=== PATIENT | male | born 1970 | race Caucasian/White ===

== ENCOUNTER 2021-02-28 09:47 | Outpatient (CLI) | payer BC, SELFPAY ==
[2021-02-28 11:28] LABS: SARS-CoV-2 Ag Positive (Negative)
[2021-02-28 19:35] LABS: Influenza Control Valid (Valid)
== END 2021-02-28 09:48 | disposition home or self-care (01) ==
LOC: CHSLAB 09:50
PROVIDERS: PCP Internal Medicine; Visit Provider Internal Medicine
DX: U07.1 COVID-19 (principal); J06.9 Acute upper respiratory infection, unspecified
CPT/HCPCS: 87081; 87426; 87804; 87880; C9803

== ENCOUNTER 2021-03-04 08:10 | Emergency (ER) | payer BC, SELFPAY ==
--- NOTE | ~2021-03-04 | XR_ITS ---
EXAMINATION: XR chest 1V portable DATE: 03/04/2021 08:36 INDICATION: Cough. COVID-19 pneumonia. TECHNIQUE: A single frontal view of the chest was obtained. COMPARISON: Chest 2 views 01/05/2019 FINDINGS: There are patchy airspace opacities in all lung zones with relative sparing of the lung api tyron. No pleural effusion or pneumothorax. The heart size is normal. Surgical clips overlie the neck. IMPRESSION: 1. Diffuse lung disease, consistent with pneumonia. Reviewed, dictated and finalized at location B. TEAM LEAD
--- NOTE | 2021-03-04 08:19 | ED.SOB ---
HPI - SOB/Dyspnea General Chief Complaint: Shortness of Breath/Dyspnea Stated Complaint: covid positive/severe cough/low blood ox Source: patient and RN notes reviewed Mode of arrival: ambulatory Limitations: no limitations History of Present Illness HPI Narrative: Patient states he he tested positive for COVID 4 days ago. He supposed to be getting infusion with monoclonal antibodies at [facility] but he has not heard from them yet. He says he has been coughing more and can not seem to get the secretions out through his tracheostomy site. He used his oxygen saturation monitor this morning and was 88-90%. He became concerned and came in for further evaluation. Says he is having lot of pain with all the coughing he is having. Pain is in between his ribs his muscles feel sore. MD elicited complaint: cough Pertinent past history: COPD Onset (ago): hour(s) (2) Context: recent illness Timing: intermittent Severity: moderate Exacerbating factors: coughing Relieving factors: nothing Associated symptoms: denies other symptoms Treatment prior to arrival: none Related Data Allergies Allergy/AdvReac Type Severity Reaction Status Date / Time No Known Allergies Allergy Unverified 09/21/18 07:52 Review of Systems Review of Systems: All systems reviewed & are unremarkable except as noted in HPI and below Constitutional: Constitutional: Denies chills and Denies fever(s) PMFSH Past Medical History Medical History (Updated 03/04/21 @ 12:22 by Viviana Arenas [facility]) Esophageal cancer Hypertension Surgical History Surgical History (Updated 03/04/21 @ 08:43 by Edvin Matias MD) H/O laryngectomy Social History Social History (Updated 03/04/21 @ 08:43 by Edvin Matias MD) Smoking status: Never smoker Exam Const: General: healthy appearing, no acute distress and alert Nutritional Appearance: well nourished and obese morbidly obese Orientation/consciousness: patient oriented x3 HENMT: Head: normal to inspection Face and sinus: normal facial exam Eyes: Conjunctivae: conjunctivae normal Pupils: Equal, round and reactive pupils present EOM: EOMs intact bilaterally Neck: Neck: normal visual inspection Resp: Effort & Inspection: normal respiratory effort Auscultation: rhonchi throughout and wheezes expiratory wheezes and anterior Cardio: Rate: regular rate Rhythm: regular rhythm GI: GI Palp: Yes Soft to palpation and No Tenderness to palpation present (GI) Auscultation: normal bowel sounds Back/Spine/Pelvis: Cervical Spine: cervical ROM normal Thoracic/Lumbar Spine: thoraco-lumbar ROM normal Skin: General skin exam: normal color Neuro: General: patient oriented x3, moves all extremities, no meningeal signs and no focal motor deficits Speech: normal speech Gait exam (Neuro): Normal gait present Extrem: General: normal to inspection and no clubbing, cyanosis or edema Psych: Mental Status: mental status grossly normal Affect: normal affect Attitude: cooperative Thought content: Yes Normal thought content present Course Vital Signs Vital signs: Vital Signs Temperature 37.2 C 03/04/21 08:29 Pulse Rate 77 03/04/21 08:29 Respiratory Rate 18 03/04/21 08:29 Blood Pressure 169/104 H 03/04/21 08:29 Pulse Oximetry 94 03/04/21 08:29 Temperature 37.2 C 03/04/21 08:29 Pulse Rate 72 03/04/21 09:40 Respiratory Rate 20 03/04/21 10:10 Blood Pressure 173/102 H 03/04/21 09:40 Pulse Oximetry 90 03/04/21 10:10 MDM - SOB/Dyspnea Lab Data Result diagrams: 03/04/21 08:20 03/04/21 08:20 Labs: Lab Results 03/04/21 03/04/21 03/04/21 Range/Units 08:20 08:20 08:20 WBC 3.8 L (4.8-10.8) K/mm3 RBC 4.62 L (4.70-6.10) M/mm3 Hgb 13.4 L (14.0-18.0) g/dL Hct 39.3 L (40.0-54.0) % MCV 85.1 (78.0-102.0) fL MCH 29.0 (27.0-31.0) pg MCHC 34.1 (32.0-36.0) g/dL RDW 13.5 (11.6-14.4) % Plt Count 194 (150-420)
[2021-03-04 08:29] VITALS: BP 169/104; PULSE 77; RESP 18; TEMP 37.2; O2SAT 94
[2021-03-04 08:58] LABS: Hematocrit 39.3 % (40.0-54.0); Hemoglobin 13.4 g/dL (14.0-18.0); Mean Corpuscular HGB Conc 34.1 g/dL (32.0-36.0); Mean Corpuscular Volume 85.1 fL (78.0-102.0); Mean Platelet Volume 9.9 fl (8.7-11.0); Platelet Count Result 194 K/mm3 (150-420); Red Blood Count 4.62 M/mm3 (4.70-6.10); Red Cell Distribution Width 13.5 % (11.6-14.4); White Blood Count 3.8 K/mm3 (4.8-10.8)
[2021-03-04 09:14] LABS: D Dimer 0.45 mg/L (0.19-0.50)
[2021-03-04 09:27] LABS: Band Neutrophils Percent 2 % (0-6); Lymphocytes Absolute Manual 0.19 K/mm3 (1.1-4.5); Lymphocytes Percent Manual 5 % (18-44); Monocytes Absolute Manual 0.15 K/mm3 (0.1-0.90); Monocytes Percent Manual 4 % (3-9); Neutrophils Absolute Manual 3.45 K/mm3 (1.3-6.7); Neutrophils Percent Manual 89 % (46-73); Total Cells Counted 100
[2021-03-04 09:28] LABS: Platelet Estimate Adequate (Adequate)
--- NOTE | 2021-03-04 09:28 | PC.NURSE ---
faxed orders for outpatient antibody infusion to [facility]. jos[facility] miguel to call to schedule appt for today
[2021-03-04 09:30] LABS: Alanine Aminotransferase 63 U/L (16-63); Albumin Level 3.7 g/dL (3.4-5.0); Alkaline Phosphatase 60 U/L (46-116); Anion Gap 10 mmol/L (8-16); Aspartate Amino Transferase 74 U/L (15-37); Bilirubin,Total 0.4 mg/dL (0.00-1.00); Blood Urea Nitrogen 11 mg/dL (7-18); CRP 4.2 mg/dL (0.0-0.9); Calcium 8.7 mg/dL (8.5-10.1); Carbon Dioxide 27 mmol/L (21-32); Chloride 94 mmol/L (98-108); Estimated CRCL calculation 118 ml/min; Estimated Glomerular Filt Rate > 60; Ferritin 952 ng/mL (26-388); Glucose 113 mg/dL (70-99); Osmolality Calculated 272 mOsm/kg (285-295); Potassium 3.4 mmol/L (3.5-5.1); Sodium 131 mmol/L (136-145); Total Protein 7.5 g/dL (6.4-8.2)
[2021-03-04 09:40] VITALS: BP 173/102; PULSE 72; O2SAT 87
[2021-03-04 09:51] LABS: Lactic Acid Reflex 1.1 mmol/L (0.4-2.0)
[2021-03-04 10:10] VITALS: RESP 20; O2SAT 90
[2021-03-04] MEDS: ALBUTEROL SULFATE (*SP) INHALER 4 PUFF INHALATION (10:14)
== END 2021-03-04 10:18 | disposition home or self-care (01) ==
PROVIDERS: Emergency Provider Emergency Medicine; PCP Internal Medicine
DX: U07.1 COVID-19 (principal); J12.82 Pneumonia due to coronavirus disease 2019
CPT/HCPCS: 36415; 71045; 80053; 82728; 83605; 83735; 85025; 85380; 86140; 94640; 96372; 99283; A9270; J1100

== ENCOUNTER 2021-03-04 11:49 | Outpatient (RCR) | payer BC, SELFPAY ==
[2021-03-04 13:57] VITALS: BP 167/93; PULSE 88; RESP 24; TEMP 36.1; O2SAT 92
[2021-03-04] MEDS: ACETAMINOPHEN 325 MG TABLET 650 MG PO (14:02)
[2021-03-04] MEDS: FAMOTIDINE 20 MG TABLET PO (14:02)
[2021-03-04] MEDS: diphenhydrAMINE HCl CAP 25 MG CAPSULE PO (14:02)
[2021-03-04 15:28] VITALS: BP 137/83; PULSE 85; O2SAT 92
== END 2021-03-04 17:00 ==
LOC: AMCINF 11:49
PROVIDERS: Visit Provider Internal Medicine Hematology & Oncology
DX: U07.1 COVID-19 (principal); C32.9 Malignant neoplasm of larynx, unspecified
CPT/HCPCS: A9270; M0243; Q0244

== ENCOUNTER 2021-05-15 14:21 | Emergency (ER) | payer BC, SELFPAY ==
--- NOTE | ~2021-05-15 | XR_ITS ---
EXAMINATION: XR hand LT min 3V INDICATION: Left hand pain TECHNIQUE: Three views of the left hand are obtained. COMPARISON: None available FINDINGS: There is a soft tissue laceration adjacent to the medial aspect of the first proximal phala nx. No underlying osseous abnormality is identified. The joint spaces are normal. IMPRESSION: 1. Soft tissue laceration of the first finger without underlying osseous abnormality. Reviewed, dictated and finalized at location B. IMPRESSION: 1. Soft tissue laceration of the first finger without underlying osseous abnorm ality.
--- NOTE | 2021-05-15 14:39 | ED.WOUNDLAC ---
HPI - Wound/Laceration General Chief Complaint: Wound/Laceration Stated Complaint: cut left hand Time Seen by Provider: 05/15/21 14:40 Source: patient Mode of arrival: ambulatory History of Present Illness HPI narrative: 50-year-old male with a history of hypertension, esophageal/ pharyngeal cancer status post laryngectomy, tracheostomy presents to the ER with -- 3 cm deep laceration on the plantar aspect of the proximal phalanx of the left thumb. This happened 45 minutes ago. -- Unable to flex his distal phalanx. Decreased sensation on the distal phalanx. Normal capillary refill distally. Onset (ago): minute(s) ( 45 minutes) Extremity Location: Left: hand Place: home Patient tetanus UTD: Yes Context: accidental Associated symptoms: pain, loss of feeling/numbness and unable to move injured part Related Data Allergies Allergy/AdvReac Type Severity Reaction Status Date / Time No Known Allergies Allergy Verified 03/04/21 13:57 Review of Systems Review of Systems: All systems reviewed & are unremarkable except as noted in HPI and below Constitutional: Constitutional: Reports as per HPI and Reports no additional constitutional complaints Eyes: Eyes: Reports as per HPI and Reports no additional eye complaints ENT: Comments: status post tracheostomy has a speaking tracheostomy Cardiovascular: Cardiovascular: Reports as per HPI and Reports no additional cardiovascular complaints Respiratory: Respiratory: Reports as per HPI and Reports no additional respiratory complaints Gastrointestinal: Gastrointestinal: Reports as per HPI and Reports no additional gastrointestinal complaints Genitourinary: Genitourinary: Reports no additional male genitourinary complaints and Reports as per HPI Musculoskeletal: Musculoskeletal: Reports no additional musculoskeletal complaints and Reports as per HPI Integumentary/Breasts: Skin/Breast: Reports system reviewed and no additional complaints, except as docu and Reports as per HPI Comments: 3 cm laceration of the left thumb Neurologic: Reports system reviewed and no additional complaints, except as documented Psychiatric: Psychiatric: Reports no additional psychiatric complaints Endocrine: Endocrine: Reports no additional endocrine complaints Hematologic/Lymphatic: Hematologic/Lymphatic: Reports no additional hematologic/lymphatic complaints Allergic/Immunologic: Allergic/Immunologic: Reports no additional allergic/immunologic complaints [facility] Past Medical History Medical History Esophageal cancer Hypertension Surgical History Surgical History H/O laryngectomy Social History Social History Smoking status: Never smoker Exam Const: General: no acute distress and alert Orientation/consciousness: patient oriented x3 HENMT: Head: normal to inspection Eyes: Conjunctivae: conjunctivae normal Pupils: Equal, round and reactive pupils present Neck: Other: tracheostomy in place Chest: Chest palpation & inspection: normal inspection of the chest Resp: Effort & Inspection: normal respiratory effort Auscultation: clear to auscultation bilaterally Cardio: Rate: regular rate Rhythm: regular rhythm GI: GI Palp: Yes Soft to palpation Back/Spine/Pelvis: Back: no CVA tenderness Skin: Other: 3 cm laceration the left thumb on the proximal phalanx and plantar aspect. laceration is down to the muscles Neuro: General: patient oriented x3, moves all extremities and no meningeal signs Other: decreased sensation of the left thumb distal to the laceration Extrem: Other: laceration left thumb Psych: Appearance: grossly normal Mental Status: mental status grossly normal Course Course Emergency Course: wound dressed MDM - Wound/Laceration MDM Narrative Medical decision making narrative: thumb lacer
[2021-05-15 14:46] VITALS: BP 167/103; PULSE 92; RESP 20; TEMP 36.6; O2SAT 99
[2021-05-15 15:20] VITALS: PULSE 91; RESP 20; O2SAT 99
== END 2021-05-15 15:24 | disposition short-term general hospital (02) ==
PROVIDERS: Emergency Provider Internal Medicine Critical Care Medicine; PCP Internal Medicine
DX: S61.012A Laceration without foreign body of left thumb without damage to nail, initial encounter (principal); W45.8XXA Other foreign body or object entering through skin, initial encounter
CPT/HCPCS: 73130; 99283; A9270

== ENCOUNTER 2021-05-29 15:49 | Outpatient (RCR) | payer BC, SELFPAY ==
--- NOTE | 2021-05-29 17:10 | OTOPEVAL ---
Thank you for referring Primitivo Quesada to [facility].? The patient is scheduled to be seen for therapy? ____x/week for ___ weeks. Please review, sign, date and return this plan of care JOSE. I agree with and certify that the following plan of care is medically necessary. Referring Physician Date Admitting Provider: Attending Provider: TIFFANIE HUFF Referring Provider: *OT Outpatient Evaluation Start: 05/29/21 15:42 Freq: Status: Active Protocol: Document 05/29/21 15:42 [facility] [place]Rec: 05/29/21 17:09 [facility] [place] [id number] Therapy Assessment Status Assessment Status Assessment Status Evaluation Evaluation Information Problem Diagnosis L Flexor pollicis longus repair Onset 05/15/21 Cause L flexor pollicis longus rupture Subjective Information Patient reports that he cut Query Text:As Reported By Patient/ his L thumb using a table saw Family at home on 05/15/21. Patient had surgery performed that evening. Patient was seen by surgeon yesterday and had the stitches removed and a splint made. Patient was encouraged to flex his fingers and his wrist every couple of hours. Patient is currently on disability and not working. He reports that he enjoys wood working. Patient lives with his spouse and was independent with all ADLs and IADLs prior to injury. Patient is right handed. *Quick DASH 59.1% Prior Level of Function Activity Level (Last 3 Months) Occupation disabled Hand Dominance Right Activity of Daily Living Ability Independent Indoor/Home Mobility Independent Community Mobility Independent Stairs Ability Independent Functional Cognition (Planning, Shopping Independent , Taking Medications) Cooking Yes Cleaning Yes Laundry Yes Shopping Yes Driving Yes Pain Assessment Timing of Pain Assessment Timing of Pain Assessment Assessment Self Report Self Report Pain Level 0 Pain Score Pain Score 0: Self Report Upper Extremity Range of Motion General Upper Extremity Range of Motion Reason Not Me
--- NOTE | 2021-06-24 09:24 | OTOPEVAL ---
Thank you for referring Primitivo Quesada to [facility].? The patient is scheduled to be seen for therapy? ____x/week for ___ weeks. Please review, sign, date and return this plan of care JOSE. I agree with and certify that the following plan of care is medically necessary. Referring Physician Date Admitting Provider: Attending Provider: TIFFANIE HUFF Referring Provider: *OT Outpatient Evaluation Start: 05/29/21 15:42 Freq: Status: Active Protocol: Document 06/24/21 08:26 [facility] [place] 06/24/21 09:23 [facility] [id number] Therapy Assessment Status Assessment Status Assessment Status Progress Evaluation Information Problem Subjective Information Patient reports no pain at Query Text:As Reported By Patient/ this time but does mention Family occasional achiness in his L hand and wrist. Patient states that he is not wearing orthosis when he is at home but still puts it on if he goes out in public. Patient feels that overall he is doing well and has not current concerns. Pain Assessment Timing of Pain Assessment Timing of Pain Assessment Pre-Treatment Self Report Self Report Pain Level 0 Pain Score Pain Score 0: Self Report Upper Extremity Range of Motion Finger Range of Motion Left Finger Range of Motion Comments all fingers 2-5 are WNL for flexion/extension Thumb Range of Motion Left Thumb MCP Flexion - Active 45 Thumb MCP Flexion - Passive 55 Thumb MCP Extension - Active 0 Thumb MCP Extension - Passive 0 Thumb IP Flexion - Active 5 Thumb IP Flexion - Passive 50 Thumb IP Extension - Active 0 Thumb IP Extension - Passive 0 Thumb CMC Palmar Abduction - Active 40 Thumb Range of Motion Comments intact AROM for opposition to L small finger Sensation Assessment Location Left 2 Point Discrimination Comments patient continues to report numbness in the distal thumb Extremity Circumference Assessment Circumference Assessment Location Left Circumference Comments L thumb IP: 8.5 cm L thumb base: 10 cm General Exercise General Exercises Exercise Comments L AROM wrist flexion/extension 1x10 L tendon glides for finger 2-5 , 1x10 PROM for L thumb composite flexion/active extension, MP
--- NOTE | 2021-07-12 09:53 | OTOPEVAL ---
Thank you for referring Primitivo Quesada to [facility] [place].? The patient is scheduled to be seen for therapy? ____x/week for ___ weeks. Please review, sign, date and return this plan of care JOSE. I agree with and certify that the following plan of care is medically necessary. Referring Physician Date Admitting Provider: Attending Provider: TIFFANIE HUFF Referring Provider: *OT Outpatient Evaluation Start: 05/29/21 15:42 Freq: Status: Active Protocol: [place] 07/12/21 09:02 [facility] [place] 07/12/21 09:51 [facility] [id number] Therapy Assessment Status Assessment Status Assessment Status Progress Evaluation Information Problem Subjective Information Patient arrives to OT and Query Text:As Reported By Patient/ reports that overall things Family are going well and he is able to use his L hand more functionally. Patient reports that he continues to experience numbness in the distal phalanx of the L thumb that limits his ability to grasp items, specifically fine motor coordination skills. Pain Assessment Timing of Pain Assessment Timing of Pain Assessment Assessment Self Report Self Report Pain Level 0 Pain Score Pain Score 0: Self Report Upper Extremity Range of Motion Thumb Range of Motion Left Thumb MCP Flexion - Active 45 Thumb MCP Flexion - Passive 58 Thumb IP Flexion - Active 5 Thumb IP Flexion - Passive 55 Sensation Assessment Location Left 2 Point Discrimination Comments patient reports numbness in the distal phalanx of his L thumb General Exercise General Exercises Side Left Exercise Description AROM for L thumb radial Query Text:Record Sets, Reps, abduction/adduction, palmar Resistance, and Position abduction/adduction, opposition to each finger tip, extension, 10 reps x 1 AROM for L thumb blocking MCP/ IP flexion and blocking for IP flexion, 10 reps x 2 sets Thumb IP blocking, holding for 10 seconds x 5 reps x 2 Isometric IP flexion, holding 10 sec x 5 reps x 2 sets yellow putty resisting L full composite flexion, L diaz lead informatica developer, and thumb extension x 10 reps
--- NOTE | 2021-09-03 17:19 | PCOTNOTE ---
Patient is discharged from skilled OT services. Patient no-showed to last scheduled appointment and failed to re-schedule. See last treatment note for skills and concerns at time of discharge. MS
== END 2021-07-29 23:59 | disposition home or self-care (01) ==
LOC: CHSOT 15:49
PROVIDERS: PCP Internal Medicine
DX: S64.32 Injury of digital nerve of left thumb (principal); S61.012D Laceration without foreign body of left thumb without damage to nail, subsequent encounter
CPT/HCPCS: 97035; 97110; 97140; 97165; 97530

== ENCOUNTER 2022-05-08 22:20 | Emergency (ER) | payer MEDICARE, SELFPAY ==
[2022-05-08 22:24] VITALS: BP 163/97; PULSE 60; RESP 20; TEMP 36.4; O2SAT 100
[2022-05-08 22:30] VITALS: O2SAT 97
--- NOTE | 2022-05-08 22:40 | ED.GENADULT ---
HPI - General Adult General Chief complaint: Unspecified Stated complaint: Voice box disloged Time Seen by Provider: 05/08/22 22:32 Source: patient and family Mode of arrival: ambulatory Limitations: no limitations History of Present Illness HPI narrative: this is a 51-year-old gentleman with history of esophageal and throat cancer has an prosthetic voice box device in place that as he was cleaning earlier this evening became dislodged and push further down into the his throat. Currently the patient has a a guide tube placed into the stoma to keep the stoma from closing off currently there is no shortness of breath no fever chills no coughing no congestion no chest pain. Onset (ago): hour(s) Related Data Home Medications Medication Instructions Recorded Confirmed amlodipine 10 mg tablet 10 mg PO DAILY 05/08/22 05/08/22 losartan 100 1 tablet PO DAILY 05/08/22 05/08/22 mg-hydrochlorothiazide 25 mg tablet pravastatin 20 mg tablet 20 mg PO DAILY 05/08/22 05/08/22 Allergies Allergy/AdvReac Type Severity Reaction Status Date / Time No Known Allergies Allergy Verified 05/08/22 22:25 Review of Systems Review of Systems: All systems reviewed & are unremarkable except as noted in HPI and below PMFSH Past Medical History Medical History Esophageal cancer Hypertension Surgical History Surgical History H/O laryngectomy Social History Social History Smoking status: Never smoker Exam Const: General: cooperative and anxious HENMT: Head: normal to inspection Face images: 1. Voice box with prosthetic a dislodged push further back into his throat has a small plastic tube to keep the stoma intact Throat: posterior oropharynx normal Eyes: General: appearance normal, both eyes and all related structures Visual Galeana: normal visual galeana by confrontation Alignment and Position: alignment normal Periorbital: periorbital findings normal Eyelids: eyelids normal Conjunctivae: conjunctivae normal Neck: Neck: normal visual inspection, full ROM, no lymphadenopathy and no meningeal signs Chest: Chest palpation & inspection: normal inspection of the chest Resp: Effort & Inspection: normal respiratory effort Auscultation: clear to auscultation bilaterally Cardio: Palpation: normal PMI Rate: regular rate Rhythm: regular rhythm Heart sounds: S1 normal heart sound present and S2 normal heart sound present GI: Inspection: normal to inspection : General: Yes bimanual renal exam normal bilaterally Skin: General skin exam: normal color and no rashes or lesions noted Neuro: General: oriented to person, oriented to place and oriented to time Extrem: General: normal to inspection, full ROM and capillary refill normal Psych: Appearance: grossly normal Mental Status: mental status grossly normal Speech and movement: Normal speech and movement present Course Course Emergency Course: patient currently appears comfortable and talk to [facility] ER for transfer. Spoke to ENT doctor Twyla that accepted patient to ER for further evaluation. Vital Signs Vital signs: Vital Signs Temperature 36.4 C 05/08/22 22:24 Pulse Rate 60 05/08/22 22:24 Respiratory Rate 20 05/08/22 22:24 Blood Pressure 163/97 H 05/08/22 22:24 Pulse Oximetry 100 05/08/22 22:24 Oxygen Delivery Room Air 05/08/22 22:24 Temperature 36.4 C 05/08/22 22:24 Pulse Rate 60 05/08/22 22:24 Respiratory Rate 20 05/08/22 22:24 Blood Pressure 163/97 H 05/08/22 22:24 Pulse Oximetry 100 05/08/22 22:24 Oxygen Delivery Room Air 05/08/22 22:24 Transfer Transfered to: [facility] Medical Decision Making Vital Signs Vital Signs: Vital Signs Temperature 36.4 C 05/08/22 22:24 Pulse Rate 60 05/08/22 22:24 Respiratory Rate 20
[2022-05-08 23:11] VITALS: BP 144/89; PULSE 75; RESP 20; O2SAT 97
--- NOTE | 2022-05-08 23:30 | PC.NURSE ---
Pt up ambulatory to [facility], Report given to [facility] for pt transfer. Pt remains in no distress, VSS. Pt ambulated to EMS cot per self s any difficulty.
== END 2022-05-08 23:33 | disposition short-term general hospital (02) ==
PROVIDERS: Emergency Provider Emergency Medicine; PCP Internal Medicine
DX: Z43.0 Encounter for attention to tracheostomy (principal); I10 Essential (primary) hypertension; Z85.01 Personal history of malignant neoplasm of esophagus
CPT/HCPCS: 99285

== ENCOUNTER 2022-11-29 04:01 | Emergency (ER) | payer MEDICARE, SELFPAY ==
--- NOTE | 2022-11-29 04:17 | ED.GENADULT ---
HPI - General Adult General Chief complaint: Cardiac Arrest/CPR Stated complaint: Unresponsive Time Seen by Provider: 11/29/22 04:07 Source: family and EMS Mode of arrival: EMS Limitations: clinical condition History of Present Illness HPI narrative: patient is a 52-year-old male with stage IV throat cancer. He was in the hospital up until today and discharged home. Family was aware that cardiac arrest could occur due to the cancer surrounding the aorta. patient was brought by EMS with PEA and having epinephrine and CPR. He was found by his collapsed on the floor in the bathroom. Total down time was 45 minutes including EMS and ER visit. unclear/unknown home down time as he was in the bathroom and was in bed. She got up to check on him after a bit and found him on the floor. Patient was bleeding from his stoma and his trachea noted by EMS. Onset (ago): minute(s) ( Unclear total down time but at least 45-50 minutes) Associated symptoms: denies other symptoms Treatments prior to arrival: other ( Epinephrine and CPR for PEA) Review of Systems Review of Systems: All systems reviewed & are unremarkable except as noted in HPI and below Constitutional: Constitutional: Reports no additional constitutional complaints Eyes: Eyes: Reports no additional eye complaints ENT: Reports system reviewed and no additional complaints, except as documented Cardiovascular: Cardiovascular: Reports no additional cardiovascular complaints Respiratory: Respiratory: Reports no additional respiratory complaints Gastrointestinal: Gastrointestinal: Reports no additional gastrointestinal complaints Genitourinary: Genitourinary: Reports no additional male genitourinary complaints Musculoskeletal: Musculoskeletal: Reports no additional musculoskeletal complaints Integumentary/Breasts: Skin/Breast: Reports system reviewed and no additional complaints, except as docu Neurologic: Reports system reviewed and no additional complaints, except as documented Psychiatric: Psychiatric: Reports no additional psychiatric complaints Endocrine: Endocrine: Reports no additional endocrine complaints Hematologic/Lymphatic: Hematologic/Lymphatic: Reports no additional hematologic/lymphatic complaints Allergic/Immunologic: Allergic/Immunologic: Reports no additional allergic/immunologic complaints Exam Const: General: ill appearing Nutritional Appearance: obese Orientation/consciousness: No patient oriented x3 Limitations: other limitations ( unconscious/ cardiac arrest) HENMT: Head: normal to inspection Ears: external ears normal Face/Nose/Sinus: Normal external nose present Eyes: Conjunctivae: conjunctivae normal Neck: Neck: normal visual inspection Chest: Chest palpation & inspection: normal inspection of the chest Resp: Auscultation: clear to auscultation bilaterally, no crackles, no rales and no rhonchi Other: patient ventilated via respiratory therapist Cardio: Rate: abnormal rate Rhythm: abnormal rhythm Heart sounds: no murmurs Other: pulses felt only during CPR GI: Inspection: distended GI Palp: Yes Soft to palpation, No Tenderness to palpation present (GI), No Guarding due to palpation present (GI) and No Rigid due to palpation Auscultation: bowels sounds not normal : General: Yes bladder normal to palpation Back/Spine/Pelvis: Back: no CVA tenderness Skin: General skin exam: pallor Rashes: no rashes Wounds: no wounds Other: bleeding from the neck stoma appears to have subsided at this time; appears to also have blood from his gastric tube site Neuro: General: No patient oriented x3, No moves all extremities and No CN's II-XI intact bilaterally Extrem: General: normal to inspection Psych: Mental Status: mental status grossly abnormal Affect: No normal affect Attitude: not cooperative Other: patient unconscious/cardiac arrest Course Course Emergency Course: patient was brought by EMS wi
--- NOTE | 2022-11-29 05:52 | PC.NURSE ---
[facility] called for info on pt. They will contact Alondra p pt body released. At this time instructed to elevate HOB, apply saline drops and close eyelids for possible harvestingp speaking c family. A member of [facility] will call back c updated info.
--- NOTE | 2022-11-29 06:51 | PC.NURSE ---
Pt is candidate for [facility], consented to donation. Pt has prep in place for eye. Call recieved from staff at [facility] and they will call back c ETA to arrive here to harvest eyes.
--- NOTE | 2022-11-29 07:38 | PC.NURSE ---
call from [facility], spoke with tari team eta [id number]. awaiting arrival . remains placed in room 4. notified no morgue at this facility.
--- NOTE | 2022-11-29 10:34 | PC.NURSE ---
[facility] procurement seam steamer here. copy of chart given as requested. in with pt.
--- NOTE | 2022-11-29 11:44 | PC.NURSE ---
procurement completed per wilfredo kennedy. call placed to [facility] for apple pick[facility] of remains. awaiting arrival
--- NOTE | 2022-11-29 12:17 | PC.NURSE ---
freeman franklin here to cone picker remains. assisted to cot .
--- NOTE | 2022-11-29 12:18 | PC.NURSE ---
notified of departure
== END 2022-11-29 04:14 | disposition expired ==
PROVIDERS: Emergency Provider Emergency Medicine; PCP Internal Medicine
DX: I46.9 Cardiac arrest, cause unspecified (principal); C14.0 Malignant neoplasm of pharynx, unspecified
CPT/HCPCS: 92950; 96372; 99285; J0171